=== PATIENT | female | born 1950 | race Caucasian/White ===

== ENCOUNTER 2021-03-25 18:21 | Emergency (ER) | payer MEDICARE ==
[~2021-03-25] VITALS: Ht 154.9 cm; Wt 109.1 kg
--- NOTE | 2021-03-25 18:34 | NUR ---
PT PLACED ON ALL ROOM MONITORING. WARM BLANKET PROVIDED, CALL LIGHT WITHIN REACH.
--- NOTE | 2021-03-25 18:47 | NUR ---
RECEIVED REPORT FROM LOYD MERCADO. TRANSFER OF CARE.
--- NOTE | 2021-03-25 18:53 | NUR ---
PT C/O OF RLQ SHARP PAIN SINCE 3 DAYS AGO. DENIES N/V/D, CP, AND SOB. PT ATTACHED TO CARD/SP02/BP [facility]. VSS. BED IN LOW POSITION, RAILS ENGAAGED. CALL LIGHT ON LAP. PT GIVEN BLANKETS. HEAD LOWERED TO REQUEST. WCTM.
[2021-03-25 19:20] LABS: ALANINE AMINOTRANSFERASE 22 U/L (12-78); ALBUMIN 3.3 g/dL (3.4-5.0); ANION GAP 4 mmol/L (5-15); CALCIUM 8.6 mg/dL (8.5-10.1); CHLORIDE 110 mmol/L (98-107); CREATININE 0.78 mg/dL (0.55-1.02); MEAN CORPUSCULAR HEMOGLOBIN 31.9 pg (27.0-34.8); MEAN PLATELET VOLUME 9.4 fL (7.4-10.4); PLATELET COUNT 187 x10^3/uL (130-400); RED BLOOD COUNT 4.19 x10^6/uL (3.82-5.3)
[2021-03-25 19:23] LABS: ALKALINE PHOSPHATASE 75 U/L (45-117); BILIRUBIN,TOTAL 0.3 mg/dL (0.2-1.0)
--- NOTE | 2021-03-25 19:41 | NUR ---
Patient is resting comfortably in bed. Bed in lowest, rails engaged, call light on lap. Vital Signs within normal limits. WCTM. NO ADDITIONAL NEEDS OR QUESTIONS AT THIS TIME. BIANKA
[2021-03-25 19:44] LABS: BAND#(MANUAL) 0.09 x10^3/uL; BANDS%(MANUAL) 1 % (0-7); LYMPH#(MANUAL) 2.61 x10^3/uL (1-3.4); LYMPHS% (MANUAL) 29 % (22-44); MONOS% (MANUAL) 10 % (2-9); SEGS% (MANUAL) 60 % (42-75)
[2021-03-25 19:46] LABS: <PLATELET ESTIMATE> ADEQUATE; <PLT MORPHOLOGY> NORMAL PLT MORPH; <RBC MORPHOLOGY> NORMAL
--- NOTE | 2021-03-25 20:35 | NUR ---
Patient is resting comfortably in bed. PT WAS JUST CHANGED INTO HER CLOTHES FROM HER GOWN. ATTACHED TO MONITORS. PT AWAITING FOR TRANSPORT. BELONGINGS AT BEDSIDE WITHIN REACH. Bed in lowest, rails engaged, call light on lap. Vital Signs within normal limits. WCTM. NADN.
--- NOTE | 2021-03-25 20:41 | NUR ---
SPOKE TO BELTRAN AT [facility] ABOUT SAFE DISCHARGE BACK TO FACILITY. BELTRAN STATED TO SEE IF DAUGHTER IN LAW COULD PIC HER UP. TRISH [phone] [place] [phone] [facility] [phone]
--- NOTE | 2021-03-25 20:47 | NUR ---
SPOKE TO TRISH OVER THE PHONE ABOUT PICKING MOTHER UP. TRISH STATES SHE IS AT [employer] [facility] AND WILL TALK TO TO SEE IF PLAN TO TAKE PT HOME TO [place] IS POSSSIBLE.
--- NOTE | 2021-03-25 21:20 | NUR ---
Patient is sleeping comfortably in bed. eyes closed. Bed in lowest, rails engaged, call light on lap. Vital Signs within normal limits. WCTM. nadn
--- NOTE | 2021-03-25 21:25 | NUR ---
CALLED TRISH TO SPEAK ABOUT TRANSPORTATION. TRISH REPORTS SHE WILL BE HERE IN 15-20 MINUTES TO BUSINESS UNIT DIRECTOR PT.
[2021-03-25 22:19] VITALS: BP 143/75
--- NOTE | 2021-03-25 22:20 | NUR ---
Patient/Caregiver given discharge instructions and they have confirmed that they understand the instructions. Patient ambulatory with steady gait WITH FWW. NAD, all questions answered appropriately, denies additional needs at this time. No personal belongings left in room after discharge. PT WAS PICKED UP FROM DAUGHTER TRISH AND [facility]. PT TOLERATED WELL.
== END 2021-03-25 22:22 | disposition home or self-care (01) ==
LOC: ED 19:00
DX: K29.50 Unspecified chronic gastritis without bleeding (principal); Z90.49 Acquired absence of other specified parts of digestive tract
CPT/HCPCS: 36415; 80053; 83690; 85025; 99283